=== PATIENT | male | born 1990 | race American Indian/Alaskan Native ===

== ENCOUNTER 2017-03-01 21:30 | Emergency (ER) | payer SELFPAY ==
[2017-03-01 21:48] VITALS: TEMP 98.2; O2SAT 100
--- NOTE | 2017-03-01 23:10 | ED PDOC ---
Arrival/HPI - General Historian: Patient - History of Present Illness Time/Duration: Prior to Arrival Symptom Onset: Sudden Symptom Course: Unchanged Severity Level: Mild Activities at Onset: Significant Context: Street, Other (skateboarding) <Neil Blakely - Last Filed: 03/01/17 23:07> <Tamia Forman PA-C - Last Filed: 03/01/17 23:36> - General Chief Complaint: Trauma Time Seen by Provider: 03/01/17 22:05 - History of Present Illness Narrative History of Present Illness (Text): 03/01/17 22:20 Adenike Rangel is a 26 year old male, who presents to the emergency department after a fall. Patient reports he was skateboarding, when he fell, and landed on his face. Patient ended up losing a front right upper tooth and has a laceration above the upper lip and mucosa of lower lip. Patient denies loss of consciousness, chest pain, shortness of breath, dizziness, nausea, vomiting, neck pain, back pain. Patient did not hit their head. Patient denies other complaints. (Neil Blakely) Associated Symptoms (Text): laceration on face (Neil Blakely) Past Medical History - Provider Review Nursing Documentation Reviewed: Yes - Psychiatric Hx Substance Use: No - Surgical History Hx Orthopedic Surgery: Yes (right leg fracture repair) <Neil Blakely - Last Filed: 03/01/17 23:07> Family/Social History - Physician Review Nursing Documentation Reviewed: Yes Family/Social History: Unknown Family HX Smoking Status: Never Smoked Hx Alcohol Use: Yes Frequency of alcohol use: Socially Hx Substance Use: No <Neil Blakely - Last Filed: 03/01/17 23:07> Allergies/Home Meds <Neil Blakely - Last Filed: 03/01/17 23:07> <Tamia Forman PA-C - Last Filed: 03/01/17 23:36> Allergies/Adverse Reactions: Allergies shellfish derived Allergy (Verified 03/01/17 21:35) ANAPHYLAXIS Review of Systems - Review of Systems Constitutional: absent: Fevers Eyes: absent: Vision Changes ENT: Other (tooth missing) Respiratory: absent: SOB Cardiovascular: absent: Chest Pain Gastrointestinal: absent: Abdominal Pain, Nausea, Vomiting Musculoskeletal: absent: Back Pain, Neck Pain Skin: Laceration Neurological: absent: Headache <Neil Blakely - Last Filed: 03/01/17 23:07> Physical Exam Vital Signs Reviewed: Yes Temperature: Afebrile Blood Pressure: Hypertensive Pulse: Tachycardic Respiratory Rate: Normal Appearance: Positive for: Well-Appearing, Non-Toxic, Comfortable Pain Distress: None Mental Status: Positive for: Alert and Oriented X 3 - Systems Exam Head: Present: Atraumatic, Normocephalic Pupils: Present: PERRL Extroacular Muscles: Present: EOMI Conjunctiva: Present: Normal Mouth: Present: Moist Mucous Membranes, Other (missing right upper front tooth) . No: Normal Teeth Neck: Present: Normal Range of Motion Respiratory/Chest: Present: Clear to Auscultation, Good Air Exchange. No: Respiratory Distress, Accessory Muscle Use Cardiovascular: Present: Regular Rate and Rhythm, Normal S1, S2. No: Murmurs Abdomen: Present: Normal Bowel Sounds. No: Tenderness, Distention, Peritoneal Signs Back: Present: Normal Inspection Upper Extremity: Present: Normal Inspection. No: Cyanosis, Edema Lower Extremity: Present: Normal Inspection. No: Edema Neurological: Present: GCS=15, CN II-XII Intact, Speech Normal Skin: Present: Warm, Dry, Normal Color, Laceration (irregular 2cm laceration above upper lip and 1.5cm laceration on mucosa of lower lip). No: Rashes Psychiatric: Present: Alert, Oriented x 3, Normal Insight, Normal Concentration <Neil Blakely - Last Filed: 03/01/17 23:07> Medical Decision Making <Neil Blakely - Last Filed: 03/01/17 23:07> <Tamia Forman PA-C - Last Filed: 03/01/17 23:36> ED Course and Treatment: 03/01/17 Impression: 26 year old male with facial laceration above upper lip, mucosa of lower lip and missing tooth on right upper front. Plan: -- Tylenol -- Reassess and disposition Progress Notes: (Neil Blakely) - Medication Orders Current Medication Orders: Discontinued Medications Acetaminophen (Tylenol 325mg Tab) 975 mg PO STAT STA Stop: 03/01/17 22:34 Last Admin: 03/01/17 22:40 Dose: 975 mg Lidocaine HCl (Lidocaine 1% (20ml)) Confirm Administered Dose 20 ml .ROUTE .M-Changa ONE Stop: 03/01/17 23:20 - Procedure PROCEDURE NOTE (Text): 03/01/17 23:33 The wound is above the upper lip and mucosa of the lower lip. The wound was copiously irrigated with normal saline. The wound was prepped and draped in the normal sterile fashion. The wound was explored for foreign bodies and none were found. The wound was anesthetised using lidocaine. The edges were reapproximated using 6-0 nylon and 5-0 vicryl sutures by JANNIE. Bleeding was well controlled and the patient tolerated the procedure well. (Tamia Forman PA-C ) - Scribe Statement The provider has reviewed the documentation as recorded by the Scribe <Neil Blakely - Last Filed: 03/01/17 23:07> - PA / AGENTS' RECORDS CLERK / Resident Statement / has reviewed & agrees with the documentation as recorded. <Tamia Forman PA-C - Last Filed: 03/01/17 23:36> - Scribe Statement 03/01/2017 Madison Colmenares Provider Scribe Attestation: All medical record entries made by the Scribe were at my direction and personally dictated by me. I have reviewed the chart and agree that the record accurately reflects my personal performance of the history, physical exam, medical decision making, and the department course for this patient. I have also personally directed, reviewed, and agree with the discharge instructions and disposition. (Neil Blakely) Disposition/Present on Arrival - Present on Arrival History of DVT/PE: No History of Uncontrolled Diabetes: No Urinary Catheter: No History of Decub. Ulcer: No History Surgical Site Infection Following: None <Neil Blakely - Last Filed: 03/01/17 23:07> - Present on Arrival Any Indicators Present on Arrival: No History of DVT/PE: No History of Uncontrolled Diabetes: No Urinary Catheter: No History of Decub. Ulcer: No - Disposition Have Diagnosis and Disposition been Completed?: Yes Disposition Time: 23:30 Patient Plan: Discharge <Tamia oFrman PA-C - Last Filed: 03/01/17 23:36> - Disposition Diagnosis: Lip laceration, Tooth avulsion Disposition: HOME/ ROUTINE Patient Problems: Current Active Problems Problem Status Onset Lip laceration Acute Tooth avulsion Acute Condition: STABLE Discharge Instructions (ExitCare): Care For Your Stitches (ED), Laceration (ED) , Acute Dental Trauma (ED) Print Language: PUERTO RICAN Additional Instructions: Thank you for letting us take care of you today. You were treated for lip laceration, tooth avulsion. The emergency medical care you received today was directed at your acute symptoms. Take over the counter tylenol for pain. Have sutures removed after 5 days. It may take several days for your symptoms to resolve. Return to the Emergency Department if your symptoms worsen, do not improve, or if you have any other problems. Please contact your doctor in 2 days for re-evaluation and follow up / or call one of the physicians/clinics you have been referred to that are listed on the Patient Visit Information form that is included in your discharge packet. Bring any paperwork you were given at discharge with you along with any medications you are taking to your follow up visit. Our treatment cannot replace ongoing medical care by a primary care provider (PCP) outside of the emergency department. [facility]. Prescriptions: Amoxicillin 500 mg PO TID #30 tablet Referrals: Clementina Mckenna, [Primary Care Provider] - Follow up with primary [facility] [Outside] - Follow up with primary Forms: [employer] (Hungarian), WORK NOTE
[2017-03-01] MEDS ORDERED: Lidocaine 1% Inj (20ml) ONE (23:19)
[2017-03-02 00:11] VITALS: BP 142/83; PULSE 80; RESP 16
== END 2017-03-02 00:29 | disposition home or self-care (01) ==
LOC: ED 21:30
DX: S01.511A Laceration without foreign body of lip, initial encounter (principal); S03.2XXA Dislocation of tooth, initial encounter; V00.131A Fall from skateboard, initial encounter; Y93.51 Activity, roller skating (inline) and skateboarding

== ENCOUNTER 2017-03-07 12:43 | Emergency (ER) | payer SELFPAY ==
--- NOTE | 2017-03-07 13:44 | ED PDOC ---
Arrival/HPI - General Historian: Patient - General Chief Complaint: Suture/Staple Removal Time Seen by Provider: 03/07/17 13:21 - History of Present Illness Narrative History of Present Illness (Text): 03/07/17 13:47 26yr old male presents today for suture removal to the upper lip. Patient states he sustained a laceration after falling off of a skateboard and had laceration repair in the emergency room. He presents today for suture removal. He denies pain. Denies fevers or chills. Patient states he is taking antibiotics as prescribed. He denies dizziness or weakness. No headaches. No other complaints (Kamilah London) Past Medical History - Provider Review Nursing Documentation Reviewed: Yes - Travel History Have you recently traveled outside [place] w/in the past 3 mons?: No - Infectious Disease Hx of Infectious Diseases: None - Tetanus Immunization Tetanus Immunization: Up to Date - Psychiatric Hx Substance Use: No - Surgical History Hx Orthopedic Surgery: Yes (right leg fracture repair) - Anesthesia Hx Anesthesia: Yes Hx Anesthesia Reactions: No Hx Malignant Hyperthermia: No Family/Social History - Physician Review Nursing Documentation Reviewed: Yes Family/Social History: Unknown Family HX Smoking Status: Never Smoked Hx Alcohol Use: Yes Hx Substance Use: No Allergies/Home Meds Allergies/Adverse Reactions: Allergies shellfish derived Allergy (Verified 03/07/17 12:59) ANAPHYLAXIS Review of Systems - Review of Systems Constitutional: absent: Fatigue, Fevers Respiratory: absent: SOB, Cough Cardiovascular: absent: Chest Pain, Palpitations Gastrointestinal: absent: Abdominal Pain, Nausea, Vomiting Musculoskeletal: absent: Arthralgias, Back Pain, Neck Pain Skin: Laceration Neurological: absent: Headache Psychiatric: absent: Anxiety Physical Exam Vital Signs Reviewed: Yes Temperature: Afebrile Blood Pressure: Normal Pulse: Regular Respiratory Rate: Normal Appearance: Positive for: Well-Appearing, Non-Toxic, Comfortable Pain Distress: None Mental Status: Positive for: Alert and Oriented X 3 - Systems Exam Head: Present: Abrasion, Laceration ([address] in upper lip; no erythema; no edema) Conjunctiva: Present: Normal Mouth: Present: Moist Mucous Membranes. No: Drooling, Trismus Neck: Present: Normal Range of Motion Respiratory/Chest: Present: Clear to Auscultation Cardiovascular: Present: Regular Rate and Rhythm Neurological: Present: GCS=15 Skin: Present: Warm, Dry Psychiatric: Present: Alert, Oriented x 3 Medical Decision Making ED Course and Treatment: 03/07/17 14:16 Patient is nontoxic well-appearing in no distress. Vital signs are stable. Suture removal: 3 sutures removed from the upper lip. Wound healing well without signs of infection I advised the patient to keep the wound clean and dry apply bacitracin twice daily and return if symptoms worsen persist or if new symptoms develop Impression: Wound check, suture removal continue antibiotics as prescribed. Keep the wound clean and dry Apply bacitracin twice daily Follow up with primary care physician within the next 2 days Return immediately if symptoms worsen persist or if new symptoms develop (Kamilah London) Disposition/Present on Arrival - Present on Arrival Any Indicators Present on Arrival: No History of DVT/PE: No History of Uncontrolled Diabetes: No Urinary Catheter: No History of Decub. Ulcer: No History Surgical Site Infection Following: None - Disposition Have Diagnosis and Disposition been Completed?: Yes Disposition Time: 13:24 Patient Plan: Discharge - Disposition Diagnosis: Encounter for removal of sutures Disposition: HOME/ ROUTINE Condition: GOOD Discharge Instructions (ExitCare): Laceration (ED) Additional Instructions: Continue antibiotics as prescribed Keep the wound clean and dry, apply bacitracin twice daily Return immediately if signs of infection develop: High fevers, increasing pain, redness, swelling, purulent discharge Follow up with the plastic surgeon within the next 2 days. Follow-up with the dentist within the next 2 days Followup with primary care physician within the next 2 days Return if any other concerning symptoms develop Referrals: Andrea Silverio MD [Staff Provider] - Follow up with primary Rajesh Domingo MD [Staff Provider] - Follow up with primary [facility] [Outside] - Follow up with primary Ivan Corona DMD [Staff Provider] - Follow up with primary Jose Howe DMD [Non-Staff] - Follow up with primary Forms: [employer] (Burkinan)
[2017-03-07 14:08] VITALS: BP 109/75; PULSE 75; RESP 19; TEMP 98; O2SAT 99
== END 2017-03-07 14:09 | disposition home or self-care (01) ==
LOC: ED 12:43
DX: Z48.02 Encounter for removal of sutures (principal)